=== PATIENT | female | born 1990 | race African-American/Black ===

== ENCOUNTER 2024-12-01 08:30 | Emergency (ER) | payer SELFPAY ==
[~2024-12-01] VITALS: Ht 175.3 cm; Wt 63.7 kg
[2024-12-01 09:06] VITALS: BP 116/60; PULSE 80; RESP 16; TEMP 98.6; O2SAT 99
--- NOTE | 2024-12-01 09:42 | ED.PDOC ---
History of Present Illness HPI Comments 34 year old female was BIBA for the c/c of 10/10 Left sided Neck pain. Pt notes that her Neck pain has been going on for the past 6x days that has progressively worsened today. Pt notes that her Neck feels as if it's "throbbing", and pain worsens upon rotating he neck to the left. Left Spurling test positive, tenderness upon palpitation. Admits of water per day Denies fever, chills, night sweats Denies persistent nausea Denies vomiting Denies thunderclap headache Denies photophobia, phonophobia Denies taking any blood thinner medication Denies vision/hearing changes Chief Complaint: Neck Pain Time Seen by MD: 09:33 Primary Care Provider: ANALY Reviewed Notes: Nurses Notes, Medications, Allergies Allergies: Coded Allergies: NO KNOWN ALLERGIES (Unverified , 12/01/24) Home Meds Active Scripts Naproxen (Naproxen) 500 Mg Tab, 500 MG PO Q12HP PRN for 10 Days, #20 TAB 0 Refills Prov:BROOKE TRAN NP 12/01/24 Methocarbamol (Methocarbamol) 500 Mg Tab, 500 MG PO Q8HP PRN for 10 Days, #30 TAB 0 Refills Prov:BROOKE TRAN NP 12/01/24 Information Source: Patient Mode of Arrival: EMS Severity: Moderate Timing: Days Duration: Since onset, Days Prehospital treatment: None Past Medical History PAST MEDICAL HISTORY: Denies Surgical History: Denies all surgeries VIDEO SOFTWARE ENGINEER History: No Pertinent VIDEO SOFTWARE ENGINEER History Family History Family History: Reviewed,noncontributory to illness, No family hx of Cancer, No family hx of DM, No family hx of Heart kadie, No family hx of HTN, No family hx ofKidney kadie, No family hx of Liver kadie, No family hx of Lung kadie, No family hx of Stroke Social History Smoker: Non-Smoker Alcohol: Denies ETOH Use Drugs: Denies Drug Use Lives In: Home Constitutional: denies: chills, diaphoresis, fatigue, fever, malaise, sweats, weakness, others EENTM: denies: blurred vision, double vision, ear bleeding, ear discharge, ear drainage, ear pain, ear ringing, eye pain, eye redness, hearing loss, mouth pain, mouth swelling, nasal discharge, nose bleeding, nose congestion, nose pain, photophobia, tearing, throat pain, throat swelling, voice changes, others Respiratory: denies: cough, hemoptysis, orthopnea, SOB at rest, shortness of breath, SOB with excertion, stridor, wheezing, others Cardiovascular: denies: chest pain, dizzy spells, diaphoresis, Dyspnea on exe rtion, edema, irregular heart beat, left arm pain, lightheadedness, palpitations, PND, syncope, others Gastrointestinal: denies: abdomen distended, abdominal pain, blood streaked bowels, constipated, diarrhea, dysphagia, difficulty swallowing, hematemesis, melena, nausea, poor appetite, poor fluid intake, rectal bleeding, rectal pain, vomiting, others Genitourinary: denies: abnormal vagina bleeding, burning, dyspareunia, dysuria, flank pain, frequency, hematuria, incontinence, pain, , vagina discharge, urgency, others Neurological: denies: dizziness, fainting, headache, left sided numbness, left sided weakness, numbness, paresthesia, pre-existing deficit, right sided numbness, right sided weakness, seizure, speech problems, tingling, tremors, weakness, others Musculoskeletal: reports: neck pain; denies: back pain, gout, joint pain, joint swelling, muscle pain, muscle stiffness, others Integumetry: denies: bruises, change in color, change in hair/nails, dryness, laceration, lesions, lumps, rash, wounds, others Allergic/Immunocompromised: denies: Difficulty Healing, Frequent Infections, Hives, Itching, others Hematologic/Lymphatic: denies: anemia, blood clots, easy bleeding, easy bruising, swollen glands, others Endocrine: denies: excessive hunger, excessive sweating, excessive thirst, excessive urination, flushing, intolerance to cold, intolerance to heat, unexplained weight gain, unexplained weight loss, others Psychiatric: denies: anxiety, bipolar disorder, depression, hopeless, panic disorder, schizophrenia, sleepless, suicidal, others All Other Systems: Reviewed and Negative Physical Exam General Appearance: No Apparent Distress, Normal HEENT: Normal ENT Inspection, Pharynx Normal, TMs Normal Neck: Limited Range of Motion, Normal, Other (Left spurling test positive, tenderness upon palpitation) Respiratory: Chest Non-Tender, Lungs Clear, No Accessory Muscle Use, No Respiratory Distress, Normal Breath Sounds Cardiovascular: No Edema, No JVD, No Murmur, Normal Peripheral Pulses, Regular Rate/Rhythm Breast Exam: Deferred Gastrointestinal: Non Tender, No Pulsatile Mass, Normal Bowel Sounds, Soft Genitalia: Deferred Pelvic: Deferred Rectal: Deferred Extremities: No calf tenderness, Normal capillary refill, Normal inspection, Normal range of motion, Non-tender, No pedal edema Musculoskeletal : Apperance: Normal Neurologic: Alert, No Motor Deficits, Normal Mood Cerebellar Function: Normal Reflexes: Normal Skin: Dry, Normal Color, Warm Lymphatic: No Adenopathy Was a procedure done? Was a procedure done?: No Differential Dx Considerations may include: Strain X-Ray, Labs, Meds, VS Vital Signs Date Time Temp Pulse Resp B/P (MAP) Pulse Ox O2 Delivery O2 Flow Rate FiO2 12/01/24 09:06 80 16 99 Room Air 12/01/24 09:06 98.6 80 16 116/60 (78) 99 98.6 12/01/24 08:37 98.6 80 16 116/60 (78) 99 98.6 X-Ray, Labs, Meds, VS Comment 34 year old female was BIBA for the c/c of 10/10 Left sided Neck pain. Patient arrives alert and oriented, ABC's intact, afebrile, vital signs stable, saturating well in room air + neck pain radiating to bilateral upper extremities ED Workup: Defer C-Spine imaging given negative by NEXUS criteria Given History, Exam the patient appears to have a cervical radiculopathy. Patient appears to be low risk for complications or other emergent conditions such as anginal equivalent, karel cervical instability, arterial dissection, osteomyelitis, epidural abscess, central cord syndrome, c-spine fracture, CVA, other spinal emergencies Rx: NSAIDs, outpatient physical therapy evaluation and recommendation for home exercises in the interim Disposition: Discharge. The patient has been given strict return precautions and understands the need to follow up within 48 hours with their primary care provider Patient was given:_Norco and Toradol. Tolerated medications with no adverse reaction. Additional MDM Review of External, Non-ED records: External records reviewed. Discussion with independent historian (EMS, family) history obtained from the patient/parents (if applicable) at bedside Chronic conditions affecting care: None Social determinants of health affecting care: None Consideration of admission (observation or admission): I considered escalation of care to admission for this patient, however given the reassuring workup, the patient is safe for outpatient management. Discussion with the Radiology: No Tests considered but not performed: Prescription medication considered but not given: Time of 1ST Reevaluation: 10:03 Reevaluation 1ST: Unchanged Patient Education/Counseling: Diagnosis, Treatment Family Education/Counseling: No Family Present Departure 1 Departure Time of Disposition: 10:39 Impression: Primary Impression: Cervicalgia Disposition: 01 HOME / SELF CARE / HOMELESS Condition: Fair e-Prescriptions Naproxen (Naproxen) 500 Mg Tab 500 MG PO Q12HP PRN for 10 Days, #20 TAB 0 Refills Prov: BROOKE TRAN NP 12/01/24 Methocarbamol (Methocarbamol) 500 Mg Tab 500 MG PO Q8HP PRN for 10 Days, #30 TAB 0 Refills Prov: BROOKE TRAN NP 12/01/24 Critical Care Note Critical Care Time?: No Stability Stability form required: No Heart Score Heart Score: Heart Score Response (Comments) Value History N/A 0 EKG N/A 0 Age N/A 0 Risk Factors N/A 0 Troponin N/A 0 Total 0 I personally scribed for BROOKE TRAN NP ([email or web address]) on 12/01/24 at 09:41. Electronically submitted by Jaquan Mei ([email or web address]). BROOKE TRAN NP Dec 01, 2024 09:41
[2024-12-01] MEDS: HYDROcodone-ACET 5/325MG TAB PO ONE (09:59)
[2024-12-01] MEDS: KETOROLAC TROMETH 30 MG/ML 1ML VIAL IM ONE (09:59)
[2024-12-01] MEDS ORDERED: NAPR-746 PO (10:40)
[2024-12-01] MEDS ORDERED: METH-1181 PO (10:40)
== END 2024-12-01 10:43 | disposition home or self-care (01) ==
LOC: EDBD 08:30 → ER 08:30
DX: M54.2 Cervicalgia (principal)
CPT/HCPCS: 96372; 99283; J1885